=== PATIENT | female | born 1985 | race African-American/Black ===

== ENCOUNTER 2020-05-01 11:19 | Emergency (ER) | payer OTHER ==
[~2020-05-01] VITALS: Ht 165.1 cm; Wt 72.0 kg
[2020-05-01 12:36] VITALS: BP 129/81
[2020-05-01] MEDS ORDERED: NAPROXEN 500 MG TABLET PO STA (13:03)
[2020-05-01] MEDS ORDERED: DIPH,PERTUSS(ACELL),TET VAC/PF 0.5 ML SYRINGE. VAX IM ONE (13:15)
[2020-05-01] MEDS ORDERED: LIDOCAINE WITH 8.4% SOD BICARB 3 ML DISP.SYRIN. INJ ONE (13:15)
[2020-05-01] MEDS ORDERED: SULF1TAB24 PO (15:04)
[2020-05-01] MEDS ORDERED: HYDR-3164 PO (15:04)
--- NOTE | 2020-05-01 15:04 | PHYS DOC ---
Past Medical History Past Medical History: No Pertinent History Past Surgical History: Smoking Status: Never Smoker Alcohol Use: None General Adult EDM: Chief Complaint: FINGER INJURY HPI: HPI: Patient is a 35 year old female who presents to the ED today complaining of infection to the right middle finger that began a week ago. Patient denies any fever, she states she had a hang nail that she picked on and it resulted to the infection. Review of Systems: Review of Systems: Constitutional: Denies fever or chills. [] Musculoskeletal: Denies back pain or joint pain. [] Integument: Reports right middle finger infection Neurologic: Denies headache, focal weakness or sensory changes. [] Psychiatric: Denies depression or anxiety. [] Heart Score: Risk Factors: Risk Factors: DM, Current or recent (<one month) smoker, HTN, HLP, family history of CAD, obesity. Risk Scores: Score 0 - 3: 2.5% MACE over next 6 weeks - Discharge Home Score 4 - 6: 20.3% MACE over next 6 weeks - Admit for Clinical Observation Score 7 - 10: 72.7% MACE over next 6 weeks - Early Invasive Strategies Current Medications: Current Medications Medications (Trade) Dose Ordered Sig/Pat Start Time Stop Time Status Last Admin Dose Admin Diphtheria/ Tetanus/Acell Pertussis (ADACEL TDap SYRINGE) 0.5 ml ONCE ONCE 05/01/20 13:15 05/01/20 13:16 DC 05/01/20 13:56 0.5 ML Lidocaine HCl (Buffered Lidocaine 1%) 3 ml 1X ONCE 05/01/20 13:15 05/01/20 13:16 DC 05/01/20 13:55 3 ML Naproxen (Naprosyn) 500 mg 1X STAT 05/01/20 13:03 05/01/20 13:05 DC 05/01/20 13:54 500 MG Allergies: Allergies: Allergies Coded Allergies Type Severity Reaction Last Updated Verified No Known Drug Allergies 05/01/20 No Physical Exam: PE: Constitutional: Well developed, well nourished, no acute distress, non-toxic appearance. [] Skin: Warm, dry, right middle finger along the nailbed with mild swelling and erythema as well as fluctuance consistent with paronychia. Neurovascular exam is intact to the right middle finger. +2 right radial pulse. Cap refill less than 2 seconds right middle finger Back: No tenderness, no CVA tenderness. [] Extremities: No tenderness, no cyanosis, no clubbing, ROM intact, no edema. [] Neurologic: Alert and oriented X 3, normal motor function, normal sensory function, no focal deficits noted. [] Psychologic: Affect normal, judgement normal, mood normal. [] Current Patient Data: Vital Signs: Vital Signs Date Time Temp Pulse Resp B/P (MAP) Pulse Ox O2 Delivery O2 Flow Rate FiO2 05/01/20 12:36 98.5 78 18 129/81 (97) 98 Room Air 98.5 EKG: EKG: [] Radiology/Procedures: Radiology/Procedures: Indication: Paronychia of the right middle finger Procedure: The patient was positioned appropriately. Local anesthesia was 1% of buffered lidocaine. An incision was then made over the apex of the lesion with an 11 blade and mild amount of yellow bloody material was expressed. The drainage cavity was irrigated and covered with sterile gauze. The patients tetanus status updated as needed. The patient tolerated the procedure well. Complications: none.[] Course & Med Decision Making: Course & Med Decision Making Pertinent Labs and Imaging studies reviewed. (See chart for details) This is a 35-year-old female patient with right middle finger paronychia which was drained in the ED. She does have cellulitis along the region. She was discharged on Bactrim. Wound care instructions and return precautions provided. Dragon Disclaimer: Dragherman Disclaimer: This electronic medical record was generated, in whole or in part, using a voice recognition dictation system. Departure Departure Impression: Primary Impression: Paronychia of finger of right hand Disposition: 01 DC HOME SELF CARE/HOMELESS Condition: STABLE Referrals: NO PCP (PCP) follow up in 1-2 weeks Patient Instructions: Paronychia, [id number] Additional Instructions: You have infection to your right middle finger that was drained. Keep the area clean and dry. Soak the finger in warm water with Epson salt 2-3 times a day for 7 days. Take the antibiotics as prescribed until completed. Follow-up with your doctor in 1 to 2 weeks. Come back to the ED at any point symptoms worsen. Scripts Hydrocodone/Apap 5-325 (NORCO 5-325 TABLET) 1 Each Tablet 1 TAB PO Q6-8HRS PRN for PAIN, #14 TAB Prov: HEATHER GONZALEZ APRN 05/01/20 Sulfamethoxazole/Trimethoprim (BACTRIM DS TABLET) 1 Each Tablet 1 TAB PO BID for 10 Days, #20 TAB 0 Refills Prov: HEATHER GONZALEZ APRN 05/01/20 HEATHER GONZALEZ APRN May 01, 2020 15:04
== END 2020-05-01 15:23 | disposition home or self-care (01) ==
LOC: ER 11:19
DX: L03.011 Cellulitis of right finger (principal); L08.89 Other specified local infections of the skin and subcutaneous tissue; R60.0 Localized edema; Z98.890 Other specified postprocedural states
CPT/HCPCS: 10060; 90471; 90715; 99283; J3490; 96374; 99285